=== PATIENT | female | born 1940 | race Caucasian/White ===

== ENCOUNTER 2019-06-09 06:28 | Inpatient (IN) ==
--- NOTE | 2019-05-20 20:29 | ANES ---
Anesthesia Pre Procedure Eval HOME MEDICATIONS calcium carbonate 500 mg calcium (1,250 mg) tablet 1,000 mg PO DAILY tab 12/03/18 [Last Taken Unknown] glucosamine sulfate 500 mg tablet 500 mg PO DAILY 01/09/19 [Last Taken Unknown] Diltiazem HCl [Cardizem Cd] 120 mg PO Q24H #30 cap.sr.24h 03/09/19 [Last Taken Unknown] apixaban 5 mg tablet 5 mg PO BID 04/15/19 [Last Taken Unknown] paroxetine HCl 20 mg tablet See Rx Instructions .ROUTE .COMPLEX #30 tab 04/15/19 [Last Taken Unknown] potassium chloride 10 mEq tablet,extended release 10 meq PO DAILY #30 tab 04/15/19 [Last Taken Unknown] Cholecalciferol (Vitamin D3) [Vitamin D] 2,000 unit PO DAILY 05/20/19 [Last Taken Unknown] Furosemide [Lasix] 20 mg PO Q1D 05/20/19 [Last Taken Unknown] Life Pac Sneha 2 pkt PO DAILY 05/20/19 [Last Taken Unknown] Allergies/Adverse Reactions: Allergies Allergy/AdvReac Type Severity Reaction Status Date / Time Iodinated Contrast Media Allergy Unknown RASH Verified 05/20/19 08:10 [Iodinated Contrast- Oral and IV Dye] aspirin AdvReac Unknown synope Verified 05/20/19 08:10 fluoxetine [From Prozac] AdvReac Unknown agitation, Verified 05/20/19 08:10 wt. loss, irritability meperidine [From Demerol] AdvReac Unknown Nausea Verified 05/20/19 08:10 - Planned Procedure Planned Procedure: RT Arthroplasty Total Hip Medication List Reviewed:: Yes Allergies Verified: Yes Medical History (Last Reviewed 05/20/19 @ 20:28 by Erasto Roland CRNA) Hip pain, right (Acute) Onset Date: ~04/22/19 Allergic rhinitis Onset Date: Unknown Arthritis Onset Date: Unknown Atrial fibrillation DJD (degenerative joint disease) Onset Date: Unknown GERD (gastroesophageal reflux disease) Onset Date: Unknown Generalized anxiety disorder Onset Date: 11/26/12 History of bone density study Onset Date: 07/2000 History of chemotherapy Onset Date: 2003 ovarian cancer Hyperlipidemia Onset Date: 05/10/94 Hypertension Onset Date: Unknown Migraine Onset Date: Unknown Myalgia Onset Date: Unknown Neoplasm, ovary, malignant Onset Date: 2003 Panic attacks Onset Date: Unknown Pneumonia Onset Date: 08/12/14 Tendinitis Onset Date: 06/19/11 UGI Onset Date: 03/2001 influenza immunization Onset Date: 05/27/08 Surgical History (Last Reviewed 05/20/19 @ 20:28 by Erasto Roland CRNA) History of appendectomy Onset Date: Unknown History of arthroscopic knee surgery Onset Date: 01/24/05 Dr. Seals-right knee medial tear History of breast biopsy Onset Date: 01/04/00 stereotactic mammotome biopsy- left breast-bengin History of colonoscopy Onset Date: 07/10/07 Dr. Mitchell-benign History of esophagogastroduodenoscopy (EGD) Onset Date: 07/10/07 Dr. [id number] negative History of tonsillectomy Onset Date: Unknown History of total abdominal hysterectomy and bilateral salpingo-oophorectomy Onset Date: Unknown History of total knee arthroplasty Onset Date: 01/31/05 Dr. Seals-right knee buried infusion port Onset Date: Unknown Family History (Last Reviewed 05/20/19 @ 20:28 by Erasto Roland CRNA) Sister Arthritis Hypothyroidism Hypertension Breast cancer Graves' disease Sister Breast cancer Sister Gallbladder problem GERD (gastroesophageal reflux disease) Sister Alive and well Father , age 94 Heart disease Cancer pancreatic Mother , age 94 Diabetes CHF (congestive heart failure) Brother Aneurysm artery, renal Myocardial infarction Diabetes Hypertension Brother Brother Alive and well Grandfather , age 85 Cancer possible bone cancer Uncle Cancer prostate Aunt Cancer breast - Family Anesthesia History Family History:: no untoward family reactions to anesthesia - Airway/Neck/Teeth Within Normal Limits:: Yes Teeth Condition: intact Neck Exam: full range of motion Mallampatti Score: 2 Thyromental (T-M) distance: > 6 cm Mandibulo Hyoid distance: > 3 cm - Respiratory Respiratory Physical: lungs clear Smoking Status: Never smoker Sleep Apnea currently treated: No Sleep Apnea by current assessment: No - Cardiovascular Cardiac History: arrhythmia, hypertension, hyperlipidemia Tolerate Activity: Fair Heart Sounds: S1 & S2, Regular - Anesthesia Assessment and Plan ASA Class: PS, III Anesthesia Type Plan: Spinal Planned difficult intubation/equipment available: No
[~2019-06-09 06:28] MED LIST: ISOPROPYL ALCOHOL 480 APPL BTL MC ONE; ROPIVACAINE HCL/PF 100 MG, EPINEPHrine 0.2 MG, KETOROLAC TROMETHAMINE 30 MG in NORMAL S... IJ PRN; TRANEXAMIC ACID 1,000 MG in NORMAL SALINE 100 ML IV PRN; ceFAZolin SODIUM 1 GM VIAL IV PRN; ceFAZolin SODIUM 1 GM VIAL ONE
[2019-06-09] MEDS: RINGER'S SOLUTION,LACTATED 1,000 ML IV PRN ×3 (07:11→09:20)
[2019-06-09] MEDS ORDERED: LIDOCAINE HCL 20 ML VIAL ONE (07:21)
[2019-06-09] MEDS ORDERED: ONDANSETRON HCL/PF 2 MG/ML VIAL ONE (07:22)
[2019-06-09] MEDS ORDERED: fentaNYL CITRATE/PF 50 MCG/ML AMPUL ONE (07:22)
[2019-06-09] MEDS ORDERED: PROPOFOL VIAL IV ONE (07:22)
[2019-06-09] MEDS ORDERED: VANCOMYCIN HCL 1 GM VIAL ONE (09:16)
[2019-06-09] MEDS ORDERED: VANCOMYCIN HCL 1 GM VIAL TP ONE (09:20)
[2019-06-09] MEDS ORDERED: MAGNESIUM HYDROXIDE 30 ML UDC PO PRN (10:48)
[2019-06-09] MEDS ORDERED: MAG HYDROX/ALUMINUM HYD/SIMETH 30 ML UDC PO PRN (10:48)
[2019-06-09] MEDS ORDERED: MORPHINE SULFATE 2 MG/ML DISP.SYRIN IV PRN (10:48)
[2019-06-09] MEDS ORDERED: NORMAL SALINE 1,000 ML IV PRN (10:50)
--- NOTE | 2019-06-09 11:12 | ANES ---
Post Anesthesia Discharge - Transfer of Care Transfer of Care handoff given to nurse: Yes - Discharge from PACU Discharge from PACU when meets criteria: Yes - Discharge to ASU Discharge to ASU-no complications/pt stable: Yes
--- NOTE | 2019-06-09 12:35 | OR ---
Operative Report - Dictated Report Narrative: Date: 06/09/2019 Preoperative diagnosis: Right hip degenerative joint disease. Postoperative diagnosis: Right hip degenerative joint disease. Procedure: Right total hip arthroplasty. Surgeon: Jose D Johnson M.D. Outside Deliverer: None Anesthesia: Spinal and local periarticular joint injection. Complications: None Specimens: Bone for disposal. Estimated blood loss: 200 milliliters. Retained implants: Depuy [place] size 5 femoral stem standard offset. Size 54 millimeter ouside diameter 3-hole Brady Gription acetabular cup. 54 millimeter outside by 36 millimeter inside diameter highly cross-linked acetabular liner. 36 millimeter diameter + 1.5 millimeter cobalt chromium femoral head. Cancellous 6.5mm screw 30 millimeter length Indications: Maame is a 78-year-old active female who has been followed in my clinic for period of time with significant complaints of right hip pain consistent with arthritic changes. She has failed conservative measures including but not limited to activity modification, passage of time, medications, and other conservative measures. Patient wished to proceed with surgical treatment. The risks, benefits, and alternatives were discussed in clinic. The risks of , blood clots, bleeding, infection, nerve/tendon blo od vessel/ injury, malposition of components, dislocation and/or instability of joint, intraoperative fracture, postoperative limited range of motion, persistent pain, failure of components, and need for additional procedures. Patient wished to proceed. Consent was obtained after answering all questions. Procedure: After marking the correct extremity on the floor, the patient was taken to the operating room. A timeout was performed. IV antibiotics consisting of 2 g of Ancef were administered prior to the procedure. A spinal anesthetic was induced by anesthesia. A Chan catheter was inserted. The patient was then transitioned to a lateral position on a well-padded pegboard. And an axillary roll was placed. The head was in neutral position. The non- operative down leg was well-padded with SCD and ALEXANDREA hose in place. The arms were supported and padded to protect from any undue pressure on the bony prominences and nerves. Well-padded anterior and posterior pelvic and chest posts were secured in order to maintain a stable position of the pelvis. This was placed so that the pelvis was perpendicular to the floor. The body was in line with the pelvis. Once it was felt that we had protected all the bony prominences and the patient was well secured with a safety belt as well, the leg was pre-scrubbed with alcohol, prepped and draped in a standard sterile fashion. A standard anterior lateral hip incision was marked out over the greater trochanter. Ioban drapes were then placed. The skin incision was then made. Sharp dissection with a scalpel utilizing cautery for hemostasis was carried out down to the gluteus and iliotibial band fascia. This was split in line with the skin incision. The greater trochanter bursa was excised. The anterior and posterior margins of the abductor tendon were identified. The anterior 1/3 of the tendon was tagged and reflected off the greater trochanter leaving a sleeve of tendon for repair at the completion of the case. This exposed the underlying hip joint capsule. A limb length stitch was placed in the skin and referenced off a nadine on the greater trochanter for evaluation of intraoperative limb lengths. An inverted T-type capsulotomy was made extending this up to the brim of the acetabulum. Using Homans to assist with elevation of the soft tissues off the anterior, superior, and inferior aspects of the femoral neck, the hip was then placed in a figure 4 position and the femoral head was dislocated. With the leg in an externally rotated and adducted position, the cutting flag was utilized in order to nadine for a standard femoral neck cut approximately a fingerbreadth above the level of the lesser trochanter. This was done while protecting the surrounding soft tissues with Homans. The femoral head was then removed and sized for guidance on preparation of the acetabulum. It was noted that there was loss of articular cartilage on both the femoral head and weightbearing portions of the acetabulum. We then returned the leg to the table and turned our attention to the acetabulum. While protecting the surrounding soft tissues, the labrum and remaining tissue in the fovea were excised using a scalpel and cautery. A series of reamers up to size 53 millimeter were utilized to prepare the acetabulum. The final reamer had good purchase and exposed the bleeding subchondral bone. The acetabulum was then thoroughly irrigated ensuring that all bony and cartilaginous materials were removed and the final 54 mm acetabular shell was impacted into place. This was placed in approximately 40 degrees of abduction and 20 degrees of anteversion utilizing the outrigger and body axis for alignment. This had a good press fit. One 6.5 x 30 mm cancellous screw was placed in the posterior superior quadrant of the acetabulum. The shell was then thoroughly irrigated and the final polyethylene was impacted into place ensuring that it seated completely. This was then protected with a sponge while we returned our attention to the femur. With the leg in a figure 4 position utilizing Homans for soft tissue protection, a box cutting osteotome, followed by Charnley awl, followed by serial reamers and broaches were utilized in order to prepare the femur. It was found that a size 5 broach gave good axial and rotational stability. The calcar reamer was utilized in order to clean up the cut edges. The proximal femur was visualized to ensure that there were no signs of fracture. A series of heads and necks were trialed. It was found that a standard neck and a + 1.5 mm femoral head gave good overall stability. There was minimal longitudinal instability. With the leg in the position of sleep the femoral head was well covered. Hip range of motion was able to reach full extension and external rotation to greater than 75 degrees prior to impingement along the posterior acetabulum. The hip was able to be flexed to greater than 90 degrees with internal rotation greater than 60 degrees prior to anterior impingement. The limb lengths were near equal based on comparison to the contralateral side in the prior placed limb length stitch. At this point was felt this was the appropriately sized femoral components as well as neck and femoral head. The trial implants were removed. The femur was thoroughly irrigated. The final implants were impacted in the place and the hip was reduced. After ensuring that there was no damage to the proximal femur, the standard periarticular joint injection of ropivacaine, Toradol, and epinephrine were injected into the joint capsule and surrounding soft tissues. The capsule was repaired with interrupted #1 Vicryl. The abductor tendon was repaired to the greater trochanter utilizing #5 Ethibond. This was oversewn with #1 Vicryl. The fascia was closed with running barbed #1 PDS suture. The wounds were thoroughly irrigated as we closed in layers. The deep fat layers were closed with running barbed 0 PDS suture. The subcutaneous tissue was closed with interrupted 3-0 Vicryl and the skin with a running subcuticular 3-0 monocryl and Prineo dressing. 4 x 4 gauze, ABD pads, and tape were applied. The patient was awoken and transferred to her hospital bed and then to the postanesthesia care unit in stable condition. Postoperative condition: The plan is to admit to the medical/surgical inpatient floor postoperatively. There will be a projected 2 to 4 day hospital stay. Postoperatively 24 hours of IV antibiotics, pain control, physical therapy, occupational therapy, and medical comanagement will be utilized. Patient will be weightbearing as tolerated with anterior hip precautions. Postoperative films will be obtained in the recovery room.
[2019-06-09] MEDS: ceFAZolin SODIUM 2 GM in DEXTROSE 5 % IN WATER 50 ML IV SCH ×4 (14:13→21:56)
[2019-06-09] MEDS: oxyCODONE HCL/ACETAMINOPHEN 1 TAB TABLET PO PRN ×3 (14:13→23:52)
--- NOTE | 2019-06-09 14:17 | ANES ---
Post Anesthesia Assessment - Vital Signs Vitals: Last Vital Signs Temp 36.4 C 06/09/19 13:13 Pulse 72 06/09/19 13:30 Resp 18 06/09/19 13:30 BP 122/56 06/09/19 13:30 Pulse Ox 97 06/09/19 13:30 Airway Patency: Normal - Mental Status Level Of Consciousness: Awake - Pain Level Pain Score: 0 - N/V Assessment Nausea/Vomiting Presence: None Dehydration:: No
--- NOTE | 2019-06-09 14:39 | PN ---
Subjective - Date and Time Seen Date: 06/09/19 Time: 14:31 Subjective Narrative: Pt. is post op and has already walked with no complaints or issues other than feeling slightly light headed (but no different than what she typically does). She is wondering if she needs daily lasix or as much cardizem. I've been asked to consult on patient to monitor her sx's for her Afib and her HTN. Objective - Review of Systems Generalized/Overall Review: Reports: No Symptoms Reported EENTM: Reports: No Symptoms Reported Respiratory: Reports: No Symptoms Reported Cardiac: Reports: Other - light headedness. Denies: Chest Pain, Edema, Palpitations, Syncope Abdominal: Reports: No Symptoms Reported Genitourinary Symptoms: Reports: No Symptoms Reported - has howell in place Musculoskeletal Complaints: Reports: No Symptoms Reported Neurological: Reports: No Symptoms Reported Skin: Reports: No Symptoms Reported Endocrine: Reports: No Symptoms Reported - Vitals Vitals: Last Vital Signs Temp 36.4 C 06/09/19 13:13 Pulse 72 06/09/19 13:30 Resp 18 06/09/19 13:30 BP 122/56 06/09/19 13:30 Pulse Ox 97 06/09/19 13:30 - Exam Constitutional: Present: Alert, Oriented x3, Cooperative, No distress ENT Exam: Present: hearing grossly normal Neck: Present: supple Respiratory: Present: lungs clear, normal breath sounds, no respiratory distress, no accessory muscle use Cardiovascular/Chest: Present: regular rate, rhythm Abdomen: Present: Normal bowel sounds, soft, nontender, nondistended, no rebound tenderness Extremity: Present: no pedal edema, no calf tenderness Skin Exam: Present: normal color Neurologic: Present: roping tender II-XII nml as tested, no motor/sensory deficits Appearance: Present: appropriate appearance, appropriate insight, neat, no memory impairment Eye contact: Present: cooperative, good eye contact, normal speech Thoughts: Present: normal thought pattern, no apparent hallucination Cauti Physician Documentation - Urinary Catheter Management Urethral (Howell) Urethral Indwelling: Yes Reason for Continuing Indwelling Catheter: Surgical Procedure Date of Insertion: 06/09/19 Time of Insertion: 08:05 Assessment/Plan - Problems/Diagnosis (1) Light headedness Problem: Acute Narrative: most likely from meds - will hold lasix for now. follow hemograms ordered by ortho. If HR < 50 or SBP < 90, consider reducing diltiazem. would first do fluid bolus though prior to reducing diltiazem. (2) A-fib Problem: Chronic Qualifiers: Atrial fibrillation type: paroxysmal Qualified Code(s): I48.0 - Paroxysmal atrial fibrillation Narrative: pt. is in NSR and doing well from a rate and rhythm standpoint. No changes in diltiazem at this time. Recommend restarting eliquis post op and no lovenox bridging should be needed. (3) Discharge planning issues Problem: Acute Narrative: rehab per Ortho. discharge according to them. Pt. is very motivated and hopefully can be sent home from hospital in typical time frame, but some of this might also depend on how her BP's are doing and any further medication adjustments.
[2019-06-09] MEDS: ACETAMINOPHEN 500 MG TABLET PO PRN (16:57)
[2019-06-09] MEDS: SENNOSIDES/DOCUSATE SODIUM 1 TAB TABLET PO SCH (21:56)
[2019-06-10] MEDS: oxyCODONE HCL/ACETAMINOPHEN 1 TAB TABLET PO PRN ×2 (05:10→09:12)
[2019-06-10] MEDS: ceFAZolin SODIUM 2 GM in DEXTROSE 5 % IN WATER 50 ML IV SCH ×2 (05:11)
[2019-06-10 06:27] LABS: Hematocrit 32.7 % (37.0-47.0); Hemoglobin 10.8 gm/dL (12.5-16.0); Mean Cell Volume 95.6 fl (78-100); Mean Corpuscular Hemoglobin 31.6 pg (27-31); Mean Platelet Volume 9.9 fl (8-12.5); Platelet Count 185 K/mm3 (150-450); Red Blood Count 3.42 M/mm3 (4.2-5.4); Red Cell Distribution Width 13.7 % (11.5-14.0); White Blood Count 8.6 K/mm3 (4.0-10.5)
[2019-06-10 06:37] LABS: Anion Gap 10.5 mmol/L (6.8-13.8); BUN/Creatinine Ratio 19.7 (9.0-21.6); Calcium * 8.1 mg/dL (7.9-10.9); Carbon Dioxide 28.6 mmol/L (24-32.6); Estimated Creat Clear 73.7; Potassium 4.1 mmol/L (3.4-4.6)
--- NOTE | 2019-06-10 06:50 | PN ---
Subjective - Date and Time Seen Date: 06/10/19 Time: 06:42 Subjective Narrative: Pt. feels a little more sore today and didn't sleep well, but overall feels ok. Still some dizziness when standing, but no CP/SOB/N/V. Objective - Review of Systems Generalized/Overall Review: Reports: No Symptoms Reported EENTM: Reports: No Symptoms Reported Respiratory: Reports: No Symptoms Reported Cardiac: Reports: Other - dizziness. Denies: Chest Pain, Edema, Palpitations Abdominal: Denies: Nausea, Vomiting Genitourinary Symptoms: Reports: No Symptoms Reported Musculoskeletal Complaints: Reports: Joint Pain Neurological: Reports: No Symptoms Reported Skin: Reports: No Symptoms Reported Endocrine: Reports: No Symptoms Reported - Vitals Vitals: Last Vital Signs Temp 36.9 C 06/10/19 06:36 Pulse 69 06/10/19 06:36 Resp 12 06/10/19 06:36 BP 128/67 06/10/19 06:36 Pulse Ox 92 L 06/10/19 06:36 - Abnormal Lab Findings Abnormal Lab Findings: Abnormal Lab Results 06/10/19 Range/Units 06:17 RBC 3.42 L (4.2-5.4) M/mm3 Hgb 10.8 L (12.5-16.0) gm/dL Hct 32.7 L (37.0-47.0) % MCH 31.6 H (27-31) pg - Exam Constitutional: Present: Alert, Oriented x3, Cooperative, Mild distress ENT Exam: Present: normal ENT inspection, hearing grossly normal Neck: Present: supple Respiratory: Present: lungs clear, normal breath sounds, no respiratory di stress, no accessory muscle use Cardiovascular/Chest: Present: regular rate, rhythm, no murmur Abdomen: Present: Normal bowel sounds, soft, nontender, nondistended Extremity: Present: no pedal edema 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, normal mood/affect, oriented x 3 Appearance: Present: appropriate appearance, appropriate insight, neat, no memory impairment Eye contact: Present: cooperative, good eye contact, normal speech Thoughts: Present: normal thought pattern, no apparent hallucination Cauti Physician Documentation - Urinary Catheter Management Urethral (Chan) Urethral Indwelling: No Date of Insertion: 06/09/19 Time of Insertion: 08:05 Date of Removal: 06/10/19 Time of Removal: 05:18 Assessment/Plan - Problems/Diagnosis (1) Light headedness Problem: Acute Narrative: could be contributed by mild anemia, but still feel the lasix would be the biggest issue. will continue to hold the lasix and will also stop the potassium as this was given due to being on lasix. (2) A-fib Problem: Chronic Qualifiers: Atrial fibrillation type: paroxysmal Qualified Code(s): I48.0 - Paroxysmal atrial fibrillation Narrative: rate controlled and in NSR. will continue diltiazem unchanged. Eliquis to start this am and will be continued BID. (3) Discharge planning issues Problem: Acute Narrative: Pt. can rehab per ortho/post op care for hip replacement. due to medical conditions and age I don't think she should be expeditiously discharged from the hospital as she is having some dizziness and we have changed her medications to try to accommodate this. Tomorrow would be the absolute earliest day of discharge and this would only be if her weight remains stable, her blood pressures remain > 110 but < 140 and her dizziness is improved. I will be gone the next few days so will check with ortho to see if they still want medical doctor to cover, though I feel what has been done should be adequate at this point in time.
[2019-06-10] MEDS: ONDANSETRON HCL/PF 2 MG/ML VIAL IV PRN ×2 (07:30→12:00)
[2019-06-10] MEDS ORDERED: POTASSIUM CHLORIDE 10 MEQ TABLET.SA PO SCH (09:00)
[2019-06-10] MEDS ORDERED: DILTIAZEM HCL 120 MG CAP.SR.24H PO SCH (09:00)
[2019-06-10] MEDS ORDERED: FUROSEMIDE 20 MG TABLET PO SCH (09:00)
[2019-06-10] MEDS: CHOLECALCIFEROL 1,000 UNIT CAPSULE PO SCH (09:11)
[2019-06-10] MEDS: APIXABAN 5 MG TABLET PO SCH ×2 (09:11→20:29)
[2019-06-10] MEDS: CALCIUM CARBONATE 500 MG TAB.CHEW PO SCH (09:12)
[2019-06-10] MEDS ORDERED: ENOXAPARIN SODIUM 40 MG/0.4 ML SYRG SC SCH (09:49)
[2019-06-10 12:26] LABS: Hematocrit 34.7 % (37.0-47.0); Hemoglobin 11.6 gm/dL (12.5-16.0)
[2019-06-10] MEDS ORDERED: HYDROcodone/ACETAMINOPHEN 1 EACH TABLET PO PRN (12:45)
[2019-06-10] MEDS ORDERED: ONDANSETRON HCL/PF 2 MG/ML VIAL IV PRN (12:47)
--- NOTE | 2019-06-10 12:51 | PN ---
Subjective - Date and Time Seen Date: 06/10/19 Time: 12:47 Subjective Narrative: Complaining of pain and nausea this am. No other acute issues. Denies any chest pain or SOB. Objective - Vitals Vitals: Last Vital Signs Temp 36.8 C 06/10/19 11:02 Pulse 67 06/10/19 11:02 Resp 14 06/10/19 11:02 BP 128/57 06/10/19 12:10 Pulse Ox 94 06/10/19 11:02 - Abnormal Lab Findings Abnormal Lab Findings: Abnormal Lab Results 06/10/19 06/10/19 06/10/19 Range/Units 06:17 06:17 12:21 RBC 3.42 L (4.2-5.4) M/mm3 Hgb 10.8 L 11.6 L (12.5-16.0) gm/dL Hct 32.7 L 34.7 L (37.0-47.0) % MCH 31.6 H (27-31) pg Random Glucose 114 H (70-110) mg/dL - Exam Exam Narrative: Gen: Alert, oriented to place and time, no distress Resp: breathing non-labored on RA CV: regular rate and rhythym MSK: RLE--> dressings intact, no drainage, mild swelling and tenderness as expected, sensation intact to light touch, motor function intact Radiology: Postoperative films demonstrate total hip arthroplasty components in good position with no fractures or other complications. Cauti Physician Documentation - Urinary Catheter Management Urethral (Chan) Urethral Indwelling: No Date of Insertion: 06/09/19 Time of Insertion: 08:05 Date of Removal: 06/10/19 Time of Removal: 05:18 Assessment/Plan Plan Narrative: 78 yo F s/p R total hip arthroplasty, POD #1. -oral pain meds, IV toradol for breakthrough -reg diet -WBAT, anterior precautions -PT/OT -DVT prophylaxis: Eliquis restarted, SCDs/teds -Appreciate medical co-management -dispo: continue inpatient care
[2019-06-10] MEDS: HYDROcodone/ACETAMINOPHEN 1 EACH TABLET PO PRN ×2 (13:51→19:03)
[2019-06-10] MEDS: KETOROLAC TROMETHAMINE 30 MG/ML VIAL IV PRN (20:25)
[2019-06-10] MEDS: SENNOSIDES/DOCUSATE SODIUM 1 TAB TABLET PO SCH (20:29)
[2019-06-10] MEDS: PARoxetine HCL 20 MG TABLET PO SCH (21:33)
[2019-06-11] MEDS: HYDROcodone/ACETAMINOPHEN 1 EACH TABLET PO PRN ×4 (01:10→13:45)
[2019-06-11 06:42] LABS: Hematocrit 32.9 % (37.0-47.0); Hemoglobin 10.8 gm/dL (12.5-16.0); Mean Cell Volume 96.2 fl (78-100); Mean Corpuscular Hemoglobin 31.6 pg (27-31); Red Blood Count 3.42 M/mm3 (4.2-5.4); White Blood Count 10.6 K/mm3 (4.0-10.5)
[2019-06-11 06:43] LABS: Mean Corpuscular Hgb Conc 32.8 g/dl (32-36); Mean Platelet Volume 10.1 fl (8-12.5); Platelet Count 201 K/mm3 (150-450); Red Cell Distribution Width 13.7 % (11.5-14.0)
[2019-06-11 06:54] LABS: BUN/Creatinine Ratio 19.7 (9.0-21.6); Estimated Creat Clear 73.7
[2019-06-11 06:55] LABS: Anion Gap 8.4 mmol/L (6.8-13.8); Calcium * 8.5 mg/dL (7.9-10.9); Carbon Dioxide 30.6 mmol/L (24-32.6)
[2019-06-11] MEDS: CALCIUM CARBONATE 500 MG TAB.CHEW PO SCH (07:59)
[2019-06-11] MEDS: APIXABAN 5 MG TABLET PO SCH ×2 (07:59→20:19)
[2019-06-11] MEDS: CHOLECALCIFEROL 1,000 UNIT CAPSULE PO SCH (07:59)
[2019-06-11] MEDS: KETOROLAC TROMETHAMINE 30 MG/ML VIAL IV PRN (15:24)
[2019-06-11] MEDS ORDERED: DILTIAZEM HCL 120 MG CAP.SR.24H PO SCH (17:00)
--- NOTE | 2019-06-11 20:01 | PN ---
Subjective - Date and Time Seen Date: 06/11/19 Time: 12:00 Subjective Narrative: No events overnight. Pain better controlled, nausea improved. Objective - Vitals Vitals: Last Vital Signs Temp 36.5 C 06/11/19 18:24 Pulse 69 06/11/19 18:24 Resp 16 06/11/19 18:24 BP 102/38 06/11/19 18:24 Pulse Ox 90 L 06/11/19 18:24 - Abnormal Lab Findings Abnormal Lab Findings: Abnormal Lab Results 06/11/19 06/11/19 Range/Units 06:38 06:38 WBC 10.6 H D (4.0-10.5) K/mm3 RBC 3.42 L (4.2-5.4) M/mm3 Hgb 10.8 L (12.5-16.0) gm/dL Hct 32.9 L (37.0-47.0) % MCH 31.6 H (27-31) pg Random Glucose 123 H (70-110) mg/dL - Exam Exam Narrative: Gen: alert and oriented Resp: breathing non-labored on room air CV: regular rate and rhythm MSK: dressings clean and dry, mild swelling and tenderness about hip, sensation intact, distal cap refill brisk Cauti Physician Documentation - Urinary Catheter Management Urethral (Chan) Urethral Indwelling: No Date of Insertion: 06/09/19 Time of Insertion: 08:05 Date of Removal: 06/10/19 Time of Removal: 05:18 Assessment/Plan Plan Narrative: 78 yo F s/p R total hip arthroplasty, POD #2. -reg diet -oral pain meds, toradol for breakthrough -PT/OT -DVT ppx: continue Eliquis, SCDs/teds -acute blood loss anemia - Hgb 10.8, stable, continue to monitor -dispo: continue inpatient care for PT, anticipate d/c tomorrow
[2019-06-11] MEDS: SENNOSIDES/DOCUSATE SODIUM 1 TAB TABLET PO SCH (20:19)
[2019-06-11] MEDS: PARoxetine HCL 20 MG TABLET PO SCH (20:19)
[2019-06-12] MEDS: ACETAMINOPHEN 500 MG TABLET PO PRN ×2 (01:22→12:02)
[2019-06-12] MEDS: HYDROcodone/ACETAMINOPHEN 1 EACH TABLET PO PRN (05:17)
[2019-06-12] MEDS: APIXABAN 5 MG TABLET PO SCH (09:05)
[2019-06-12] MEDS: CALCIUM CARBONATE 500 MG TAB.CHEW PO SCH (09:05)
[2019-06-12] MEDS: CHOLECALCIFEROL 1,000 UNIT CAPSULE PO SCH (09:05)
--- NOTE | 2019-06-12 11:33 | PN ---
Subjective - Date and Time Seen Date: 06/12/19 Time: 11:30 Subjective Narrative: No events overnight. Pain controlled, nausea resolved. Patient making appropriate gains with mobility. Objective - Vitals Vitals: Last Vital Signs Temp 37.0 C 06/12/19 06:27 Pulse 74 06/12/19 06:27 Resp 12 06/12/19 06:27 BP 122/45 06/12/19 06:27 Pulse Ox 97 06/12/19 06:27 - Exam Exam Narrative: MSK: RLE--> dressing removed today, incision healing appropriately without erythema or drainage, Prineo dressing sealed and intact, sensation intact thr oughout, distal cap refill brisk Cauti Physician Documentation - Urinary Catheter Management Urethral (Chan) Urethral Indwelling: No Date of Insertion: 06/09/19 Time of Insertion: 08:05 Date of Removal: 06/10/19 Time of Removal: 05:18 Assessment/Plan Plan Narrative: 78 yo F s/p R total hip arthroplasty, POD #3. -reg diet -oral pain meds -PT/OT -DVT ppx: continue Eliquis, marie hose for 6 weeks postop -dressing removed today -dispo: plan for d/c to SNF today. - Problems/Diagnosis (1) Osteoarthritis of right hip Problem: Chronic Qualifiers: Osteoarthritis type: primary Qualified Code(s): M16.11 - Unilateral primary osteoarthritis, right hip
--- NOTE | 2019-06-12 11:48 | DS ---
(1) Osteoarthritis of right hip Problem: Chronic Qualifiers: Osteoarthritis type: primary Qualified Code(s): M16.11 - Unilateral primary osteoarthritis, right hip Date of Discharge:: 06/12/19 Description of Stay: Patient was taken to the OR on 06/09/19 for right total hip arthroplasty. She tolerated the procedure well and there were no complications. She was admitted to the floor postoperatively. Family medicine was consulted for postoperative medical comanagement. Vital signs were followed and remained stable throughout her stay. She did develop acute blood loss anemia as expected postoperatively. Her hemoglobin was monitored and remained stable. She resumed a normal diet and normal bladder and bowel function. Pain was controlled with oral pain medications. She made appropriate gains with physical therapy. Her wound was followed and showed no signs of infection. She was deemed appropriate for discharge to a shelter facility on postop day 3. Procedures Performed: see notes below List Procedures: Right total hip arthroplasty on 06/09/19. Results and Findings: Lab Pending Results 06/10/19 06:17: WBC 8.6, RBC 3.42 L, Hgb 10.8 L, Hct 32.7 L, MCV 95.6, MCH 31.6 H, MCHC 33.0, RDW 13.7, Plt Count 185, MPV 9.9 06/10/19 06:17: Sodium 138, Plasma Sodium 138, Potassium 4.1, Chloride 103, Carbon Dioxide 28.6, Anion Gap 10.5, BUN 12, Creatinine 0.61, Est GFR (Non-Af Amer) 101, BUN/Creatinine Ratio 19.7, Random Glucose 114 H, Calcium 8.1 06/10/19 12:21: Hgb 11.6 L, Hct 34.7 L 06/11/19 06:38: WBC 10.6 H D, RBC 3.42 L, Hgb 10.8 L, Hct 32.9 L, MCV 96.2, MCH 31.6 H, MCHC 32.8, RDW 13.7, Plt Count 201, MPV 10.1 06/11/19 06:38: Sodium 136, Plasma Sodium 136, Potassium 4.0, Chloride 101, Carbon Dioxide 30.6, Anion Gap 8.4, BUN 12, Creatinine 0.61, Est GFR (Non-Af Amer) 101, BUN/Creatinine Ratio 19.7, Random Glucose 123 H, Calcium 8.5 Discharge Location: [facility] Disposition: SNF Condition: Good Discharge Activity: Weight bearing - as tolerated, Other - anterior hip precautions Discharge Diet: General/regular food Long Term Therapy: Physical Therapy, Occupation Therapy Referrals: Jose D Johnson MD [Staff Physician] - 06/24/19 9:00 am Problem Oriented Discharge Instructions to Patient/Family: Total Hip Replacement, Care After, [id number] Additional Patient Instructions (free text): To [facility], for PT and OT to evaluate and treat. Please fax discharge information to them and call nursing report at discharge. Follow up in the orthopedic office with Dr. Johnson on June 24 at 9:00am. Orthopedic discharge instructions: 1. Weightbearing as tolerated, anterior hip precautions. 2. Oral pain medication. 3. Dressings: Inspect Prineo dressing daily for peeling or any drainage. If any peeling or drainage is noted please contact the orthopedic clinic and cover the incision with 4 x 4 gauze and tape. 4. May shower as long as dressing is intact. 5. DVT prophylaxis: Continue Eliquis, ALEXANDREA hose for 6 weeks. 6. Continue PT for progressive upright mobility. No abductor strengthening for 6 weeks. 7. Follow-up in orthopedic clinic in 2 weeks ([phone]). 8. Contact the orthopedic clinic for any concerns or problems including increasing pain, redness, drainage, fevers, chills, or any other concerns regarding her right hip or general medical condition. Prescriptions (Any new or edited meds): HYDROcodone/ACETAMINOPHEN [Hydrocodon-Acetaminophen 5-325] 1 - 2 each PO Q6H PRN #60 tablet PRN Reason: Pain Transmission Status: Sent to [facility] Complete Home Medications List: Complete Home Medication List: glucosamine sulfate 500 mg tablet 500 mg PO DAILY 01/09/19 apixaban 5 mg tablet 5 mg PO BID 04/15/19 paroxetine HCl 20 mg tablet See Rx Instructions .ROUTE .COMPLEX #30 tab 04/15/19 potassium chloride 10 mEq tablet,extended release 10 meq PO DAILY #30 tab 04/15/19 Cholecalciferol (Vitamin D3) [Vitamin D3] 2,000 unit PO DAILY 05/20/19 Furosemide [Lasix] 20 mg PO Q1D 05/20/19 Life Pac Sneha 2 pkt PO DAILY 05/20/19 Calcium Carbonate [Calcium] 600 mg PO DAILY 06/09/19 Diltiazem HCl [Cardizem Cd] 120 mg PO HS 06/09/19 HYDROcodone/ACETAMINOPHEN [Hydrocodon-Acetaminophen 5-325] 1 - 2 each PO Q6H PRN #60 tablet 06/12/19 HYDROcodone/ACETAMINOPHEN [[place] 5-325] 1 each PO Q4H PRN tablet 06/12/19 HYDROcodone/ACETAMINOPHEN [[place] 5-325] 2 each PO Q4H PRN tablet 06/12/19 Sennosides/Docusate Sodium [Senokot-S] 2 tab PO HS tablet 06/12/19
[2019-06-12 13:05] VITALS: BP 114/42
== END 2019-06-12 13:30 | DRG 470 ==
LOC: MS 06:28
PROVIDERS: ADMIT Orthopaedic Surgery; ATTEND Orthopaedic Surgery
DX: R42 Dizziness and giddiness; I48.0 Paroxysmal atrial fibrillation; M16.11 Unilateral primary osteoarthritis, right hip; I10 Essential (primary) hypertension
CPT/HCPCS: 36415; 73502; 80048; 85014; 85018; 85027; 97110; 97116; 97161; 97165; 97530; 97535; J2405